=== PATIENT | female | born 1950 | race Caucasian/White ===

== ENCOUNTER 2018-05-21 14:56 | Inpatient (IN) ==
[2018-05-21] MEDS ORDERED: Vancomycin Consult Pharmacy OTHER PRN (17:01)
[2018-05-21] MEDS ORDERED: Dextrose 50% in Water 50 ML Vial IV.PUSH PRN (17:01)
[2018-05-21] MEDS: Insulin NovoLOG Aspart Correctional Sugar Inj SQ SCH (20:26)
[2018-05-21] MEDS: Sod Chloride 0.9% Inj 1,000 ML IV.CONT SCH (20:28)
[2018-05-21] MEDS: Enoxaparin Inj 30 MG/0.3 ML Syringe SQ SCH (20:34)
[2018-05-21] MEDS: Senna/Docusate Sodium 8.6/50 MG Tablet PO SCH (20:34)
[2018-05-21] MEDS: Acetaminophen 325 MG Tablet PO PRN (21:14)
[2018-05-21] MEDS: Piperacil/Tazo 4.5 GM Premix 4.5 GM/100 ML BAG IV.SIG SCH (22:07)
[2018-05-22] MEDS: Piperacil/Tazo 4.5 GM Premix 4.5 GM/100 ML BAG IV.SIG SCH ×3 (03:58→21:37)
[2018-05-22] MEDS: Sod Chloride 0.9% Inj 1,000 ML IV.CONT SCH (04:56)
[2018-05-22 06:00] LABS: Baso % (Auto) 0.1 % (0.0-2.0); Eos # (Auto) 0.2 th/mm3 (0.0-0.4); Eos % (Auto) 3.5 % (0.0-4.0); Hematocrit 32.1 % (35.0-46.0); Hemoglobin 10.8 gm/dL (11.6-15.3); Lymph # (Auto) 0.6 th/mm3 (1.0-4.8); Lymph % (Auto) 8.6 % (9.0-44.0); Mean Corpuscular HGB Conc 33.7 % (32.0-36.0); Mean Corpuscular Hemoglobin 31.5 pg (27.0-34.0); Mean Corpuscular Volume 93.7 fL (80.0-100.0); Mean Platelet Volume 7.3 fL (7.0-11.0); Mono # (Auto) 0.5 th/mm3 (0.0-0.9); Mono % (Auto) 7.6 % (0.0-8.0); Neut # (Auto) 5.4 th/mm3 (1.8-7.7); Neut % (Auto) 80.2 % (16.0-70.0); Platelet Count 206 th/mm3 (150-450); Red Blood Count 3.43 mil/mm3 (4.00-5.30); Red Cell Distribution Width 14.9 % (11.6-17.2); White Blood Count 6.7 th/mm3 (4.0-11.0)
[2018-05-22 06:07] LABS: Chloride 109 meq/L (98-107); Sodium 145 meq/L (136-145)
[2018-05-22 06:14] LABS: Calcium 7.6 mg/dL (8.5-10.1)
[2018-05-22 06:15] LABS: Albumin 2.7 g/dL (3.4-5.0); Anion Gap 9 meq/L (5-15); Blood Urea Nitrogen 8 mg/dL (7-18); Carbon Dioxide 27.2 meq/L (21.0-32.0); Glucose,Random 127 mg/dL (74-106)
[2018-05-22 06:17] LABS: Alanine Aminotransferase 27 U/L (10-53); Aspartate Aminotransferase 25 U/L (15-37)
[2018-05-22 06:18] LABS: Glomerular Filtration Rate Greater Than 89 mL/min (>89); Total Protein 6.3 g/dL (6.4-8.2)
[2018-05-22 06:20] LABS: Alkaline Phosphatase 82 U/L (45-117)
[2018-05-22] MEDS: Insulin NovoLOG Aspart Correctional Sugar Inj SQ SCH ×4 (06:33→18:02)
[2018-05-22] MEDS: Senna/Docusate Sodium 8.6/50 MG Tablet PO SCH ×2 (08:10→21:37)
[2018-05-22] MEDS ORDERED: Vancomycin Inj 2,000 MG in Sodium Chlor 0.9% Inj 500 ML IV.SIG SCH (09:00)
[2018-05-22] MEDS: Potassium Chloride Inj 30 MEQ in Sod Chloride 0.9% Inj 1,000 ML IV.CONT SCH ×2 (09:17→21:37)
[2018-05-22] MEDS: Acetaminophen 325 MG Tablet PO PRN (09:27)
--- NOTE | 2018-05-22 12:06 | P.HPIM ---
History of Present Illness Primary Care Physician: UNKNOWN Chief Complaint: Urine abnormalities History of Present Illness: The patient is a 67-year-old female with a past medical history of lupus, kidney stones and UTI who is presenting to the hospital with changes in her urine. She says on Tuesday she noticed that her urine became dark in color she started drinking a lot of water in response to that. She says she dribble some urine on the toilet seat and noticed that the urine was the color of rest. She was unsure if there was any sediment in the urine. The patient then said that she went into full body shakes not too long after that. She said she felt cold. She then had an episode of urinary incontinence. She thinks that she may have passed a stone. She was also noted to have balance issues. Her family states that she was mumbling incoherently. The patient does endorse some confusion over the past few days. She denies any fevers. She states that she noted a rash on her upper right chest wall today. She said it was warm to the touch. She also endorse some back pain. She says earlier in the bathroom her legs and arms look like they were more red in color. Inpatient Certification: I certify that the inpatient services were ordered in accordance with Medicare regulations governing the order. This includes certification that hospital inpatient services are reasonable and necessary and in the case of services not specified as inpatient-only under 42 CFR 419.22(n), that they are appropriately provided as inpatient services in accordance to with the 2-midnight benchmark under 43 CFR 412.3(e) Estimated Total Length of Stay (Days): 2 Plans for Post Hospital Care: Not yet determined Review of Systems All other systems reviewed negative except as stated in [facility] - History History Provided By: Patient - Medical History Medical History: Medical History (Last Updated 05/22/18 @ 12:05 by Nelson Romeo DO) CAD (coronary artery disease) COPD (chronic obstructive pulmonary disease) Crohns disease Diabetes Kidney stones Systemic lupus erythematosus UTI (urinary tract infection) Breast cancer Fibromyalgia HTN (hypertension) Thyroid disease - Surgical History Surgical History: Surgical History (Last Updated 05/22/18 @ 12:05 by Nelson Romeo DO) H/O bilateral mastectomy History of bilateral knee replacement History of tonsillectomy and adenoidectomy Hx of bilateral mastectomy Hx of tubal ligation - Family History Family History: Family History (Last Updated 05/22/18 @ 12:05 by Nelson Romeo DO) Other Cancer - Tobacco History Second Hand Smoke Exposure: Yes Tobacco Use In Past 30 Days: No (quit in 1997.) Smoking Status: Former smoker - Alcohol History How Often Do You Have a Drink Containing Alcohol: Never - Substance Use History Substance History: No History of Abuse - Travel History Recent Travel in the [place] Within the Last 8 Weeks: No Recent Travel Out of the Country Within the Last 8 Weeks: No - Immunization History Tetanus Immunization: Unable to Assess Hx Influenza Vaccine This Season: Yes Medications and Allergies Active Medications: Active Medications Acetaminophen (Tylenol) 650 mg PO Q4H PRN PRN Reason: Temp > 100.4, pain 1-2 Last Admin: 05/22/18 09:27 Dose: 650 mg Amitriptyline HCl (Elavil) 75 mg PO DAILY [facility] Atorvastatin Calcium (Lipitor) 40 mg PO DAILY [facility] Dextrose (D50w Vial) 50 ml IV.PUSH UNSCH PRN PRN Reason: PER HYPOGLYCEMIA PROTOCOL Enoxaparin Sodium (Lovenox Inj) 30 mg SQ Q24H [facility] Last Admin: 05/21/18 20:34 Dose: 30 mg Glucagon (Glucagon Inj) 1 mg OTHER PRN PRN PRN Reason: for Hypoglycemia Protocol Hydroxychloroquine Sulfate (Plaquenil) 200 mg PO BID [facility] Piperacillin/Tazobactam/Dextrose (Zosyn 4.5 Gm Premix) 4.5 gm in 100 mls @ 200 mls/hr IV.SIG Q6H [facility] Last Infusion: 05/22/18 04:30 Dose: Infused Vancomycin HCl 2,000 mg/ (Sodium Chloride) 520 mls @ 250 mls/hr IV.SIG Q24H [facility] Last Admin: 05/22/18 09:19 Dose: 250 mls/hr Potassium Chloride 30 meq/ (Sodium Chloride) 1,015 mls @ 84 mls/hr IV.CONT .Q12H5M [facility] Last Admin: 05/22/18 09:17 Dose: 84 mls/hr Insulin Aspart (Novolog Insulin Correctional Sugar Inj) 0 unit SQ Q6HR LISA; Protocol Last Admin: 05/22/18 06:33 Dose: Not Given Levothyroxine Sodium (Synthroid) 100 mcg PO DAILY [facility] Loratadine (Claritin) 10 mg PO DAILY [facility] Metoprolol Tartrate (Lopressor) 25 mg PO DAILY [facility] Miscellaneous Information ([facility] Ordered Lab Info) 0 each OTHER ONCE ONE Stop: 05/25/18 08:46 Ondansetron HCl (Zofran Inj) 4 mg IV.PUSH Q6H PRN PRN Reason: NAUSEA OR VOMITING Oxycodone HCl (Roxicodone) 5 mg PO Q4H PRN PRN Reason: pain 3-10 Pharmacy Profile Note (Vancomycin Consult Pharmacy) 1 each OTHER UNSCH PRN PRN Reason: Pharmacy to dose Pregabalin (Lyrica) 100 mg PO TID [facility] Senna/Docusate Sodium (Michelle-Colace) 1 tab PO BID [facility] Last Admin: 05/22/18 08:10 Dose: Not Given Sodium Chloride (Ns Flush) 2 ml IV.FLUSH BID [facility] Last Admin: 05/22/18 08:10 Dose: Not Given Sodium Chloride (Ns Flush) 2 ml IV.FLUSH PRN PRN PRN Reason: FLUSH AFTER USING IV ACCESS Allergies Allergy/AdvReac Type Severity Reaction Status Date / Time aspirin Allergy Severe SWELLING Verified 05/21/18 15:09 iodine Allergy Severe PASSED OUT Verified 05/21/18 15:09 potassium iodide Allergy Severe PASSED OUT Verified 05/21/18 15:09 povidone-iodine Allergy Severe PASSED OUT Verified 05/21/18 15:09 sodium iodide Allergy Severe PASSED OUT Verified 05/21/18 15:09 sodium iodide Allergy Severe PASSED OUT Verified 05/21/18 15:09 Sulfa (Sulfonamide Allergy Unknown Rash Verified 05/21/18 15:09 Antibiotics) CITRUS Allergy Severe SWELLING Uncoded 05/21/18 15:09 Home Medications Medication Instructions Recorded Confirmed Type amitriptyline 75 mg PO DAILY 05/21/18 05/22/18 History atorvastatin 40 mg PO DAILY 05/21/18 05/22/18 History hydrochlorothiazide 25 mg PO DAILY 05/21/18 05/22/18 History hydroxychloroquine 200 mg PO BID 05/21/18 05/22/18 History levothyroxine 100 mcg PO DAILY 05/21/18 05/22/18 History loratadine 10 mg PO DAILY 05/21/18 05/22/18 History metformin 500 mg PO BID 05/21/18 05/22/18 History metoprolol tartrate 25 mg PO DAILY 05/21/18 05/22/18 History pregabalin [Lyrica] 100 mg PO TID 05/21/18 05/22/18 History Exam Vital signs: Vital Signs 05/21/18 20:00 05/21/18 21:00 05/22/18 00:00 Temperature 100.6 F H 98.1 F Pulse Rate 86 89 75 Respiratory Rate 18 18 Blood Pressure 131/59 L 117/59 L Pulse Oximetry 99 98 05/22/18 00:28 05/22/18 04:00 05/22/18 08:00 Temperature 97.8 F 98.9 F Pulse Rate 76 83 Respiratory Rate 18 18 Blood Pressure 155/65 H 132/62 Pulse Oximetry 98 97 97 05/22/18 08:08 Temperature Pulse Rate Respiratory Rate Blood Pressure Pulse Oximetry 98 Intake & Output 05/21/18 05/22/18 05/22/18 18:59 06:59 18:59 Intake Total 380 / 380 1000 / 1000 Output Total 450 / 450 Balance -70 / -70 1000 / 1000 Weight 115 kg Intake: IV 200 / 200 1000 / 1000 NS Inj 1,000 ML @ 100 mls/hr IV 1000 / 1000 .CONT .Q10H [facility] Rx#:[id number] Zosyn 4.5 GM Premix 4.5 gm In 200 / 200 100 ml @ 200 mls/hr IV.SIG Q6H [facility] Rx#:[id number] Oral 180 / 180 Output: Urine 450 / 450 Other: Date of Last Bowel Movement 05/20/18 Weight On Admission 114.4 kg Narrative: GENERAL: No distress. SKIN: Focused skin assessment warm/dry. Mild erythema on right upper chest wall. HEAD: Atraumatic. Normocephalic. EYES: Pupils equal and round. No scleral icterus. No injection or drainage. ENT: No nasal bleeding or discharge. Mucous membranes pink and moist. NECK: Trachea midline. No JVD. CARDIOVASCULAR: Regular rate and rhythm. No murmur appreciated. RESPIRATORY: No accessory muscle use. Clear to auscultation. Breath sounds equal bilaterally. GASTROINTESTINAL: Abdomen soft, non-tender, nondistended. Hepatic and splenic margins not palpable. Minimal bilateral CVA tenderness noted, worse on the right. MUSCULOSKELETAL: No obvious deformities. No clubbing. No cyanosis. No edema. NEUROLOGICAL: Awake and alert. No obvious cranial nerve deficits. Motor grossly within normal limits. Normal speech. PSYCHIATRIC: Appropriate mood and affect; insight and judgment normal. Results - Labs CBC & Chem 7: 05/22/18 05:28 05/22/18 05:28 Labs: Short CBC 05/22/18 Range/Units 05:28 WBC 6.7 (4.0-11.0) th/mm3 Hgb 10.8 L (11.6-15.3) gm/dL Hct 32.1 L (35.0-46.0) % Plt Count 206 (150-450) th/mm3 BMP 05/22/18 05:28 Sodium 145 Potassium 3.0 L Chloride 109 H Carbon Dioxide 27.2 BUN 8 Creatinine 0.55 Calcium 7.6 L D Liver Function 05/22/18 Range/Units 05:28 Total Bilirubin 0.7 (0.2-1.0) mg/dL AST 25 (15-37) U/L ALT 27 (10-53) U/L Alkaline Phosphatase 82 (45-117) U/L Albumin 2.7 L D (3.4-5.0) g/dL Caprini VTE Risk Assessment Caprini VTE Risk Assessment: Moderate/High Risk (score >= 2) Caprini Risk Assessment Model: Point Value = 1 Point Value = 2 Point Value = 3 Point Value = 5 Age 41-60 Minor surgery BMI > 25 kg/m2 Swollen legs Varicose veins or History of unexplained or recurrent spontaneous Oral contraceptives or hormone replacement Sepsis (< 1 month) Serious lung disease, including pneumonia (< 1 month) Abnormal pulmonary function Acute myocardial infarction Congestive heart failure (< 1 month) History of inflammatory bowel disease Medical patient at bed rest Age 61-74 Arthroscopic surgery Major open surgery (> 45 min) Laparoscopic surgery (> 45 min) Malignancy Confined to bed (> 72 hours) Immobilizing plaster cast Central venous access Age >= 75 History of VTE Family history of VTE Factor V Leiden Prothrombin [id number] Lupus anticoagulant Anticardiolipin antibodies Elevated serum homocysteine Heparin-induced thrombocytopenia Other congenital or acquired thrombophilia Stroke (< 1 month) Elective arthroplasty Hip, pelvis, or leg fracture Acute spinal cord injury (< 1 month) Prophylaxis Regimen: Total Risk Factor Score Risk Level Prophylaxis Regimen 0-1 Low Early ambulation 2 Moderate Order ONE of the following: *Sequential Compression Device (SCD) *Heparin 5000 units SQ BID 3-4 Higher Order ONE of the following medications: *Heparin 5000 units SQ TID *Enoxaparin/Lovenox 40 mg SQ daily (WT < 150 kg, CrCl > 30 mL/min) *Enoxaparin/Lovenox 30 mg SQ daily (WT < 150 kg, CrCl > 10-29 mL/min) *Enoxaparin/Lovenox 30 mg SQ BID (WT < 150 kg, CrCl > 30 mL/min) AND/OR *Sequential Compression Device (SCD) 5 or more Highest Order ONE of the following medications: *Heparin 5000 units SQ TID (Preferred with Epidurals) *Enoxaparin/Lovenox 40 mg SQ daily (WT < 150 kg, CrCl > 30 mL/min) *Enoxaparin/Lovenox 30 mg SQ daily (WT < 150 kg, CrCl > 10-29 mL/min) *Enoxaparin/Lovenox 30 mg SQ BID (WT < 150 kg, CrCl > 30 mL/min) AND *Sequential Compression Device (SCD) Assessment and Plan - Plan UTI/sepsis Patient with tachycardia and leukocytosis. Noted to have a urinary tract infection. Lactic acid level was elevated. -Discontinue vancomycin. Continue IV Zosyn. -Follow urine and blood cultures. -Continue IV fluids. Hypokalemia Likely s/t decreased PO intake and diuretics. -replete with IVFs and monitor. -telemetry. -hold HCTZ. Diabetes Well controlled at this time. -Continue insulin sliding scale. -Add long acting insulin as needed. Anemia Possibly dilutional. MCV normal. -follow CBC. PPx: Lovenox H&P: Quality - VTE Deep Vein Thrombosis/Pulmonary Embolism Present on Admission: No
[2018-05-22] MEDS: Hydroxychloroquine 200 MG Tablet PO SCH ×2 (12:24→21:38)
[2018-05-22] MEDS: Levothyroxine 100 MCG Tablet PO SCH (12:24)
[2018-05-22] MEDS: Metoprolol Tartrate 25 MG Tablet PO SCH (12:25)
[2018-05-22] MEDS: Amitriptyline 25 MG Tablet PO SCH (12:26)
[2018-05-22] MEDS: Enoxaparin Inj 30 MG/0.3 ML Syringe SQ SCH (21:37)
[2018-05-23] MEDS: Piperacil/Tazo 4.5 GM Premix 4.5 GM/100 ML BAG IV.SIG SCH ×2 (02:56→06:30)
[2018-05-23] MEDS: Insulin NovoLOG Aspart Correctional Sugar Inj SQ SCH ×4 (02:59→17:35)
[2018-05-23 06:46] LABS: Baso % (Auto) 0.3 % (0.0-2.0); Eos # (Auto) 0.3 th/mm3 (0.0-0.4); Hematocrit 33.5 % (35.0-46.0); Hemoglobin 11.6 gm/dL (11.6-15.3); Lymph # (Auto) 0.7 th/mm3 (1.0-4.8); Lymph % (Auto) 10.6 % (9.0-44.0); Mean Corpuscular HGB Conc 34.6 % (32.0-36.0); Mean Corpuscular Hemoglobin 32.4 pg (27.0-34.0); Mean Corpuscular Volume 93.5 fL (80.0-100.0); Mono # (Auto) 0.6 th/mm3 (0.0-0.9); Mono % (Auto) 9.1 % (0.0-8.0); Neut # (Auto) 4.9 th/mm3 (1.8-7.7); Platelet Count 238 th/mm3 (150-450); Red Blood Count 3.58 mil/mm3 (4.00-5.30); Red Cell Distribution Width 14.5 % (11.6-17.2); White Blood Count 6.5 th/mm3 (4.0-11.0)
[2018-05-23 06:52] LABS: Chloride 106 meq/L (98-107); Potassium 3.1 meq/L (3.5-5.1); Sodium 142 meq/L (136-145)
[2018-05-23 06:55] LABS: Anion Gap 9 meq/L (5-15); Blood Urea Nitrogen 5 mg/dL (7-18); Calcium 7.8 mg/dL (8.5-10.1); Glucose,Random 127 mg/dL (74-106); Magnesium 1.9 mg/dL (1.5-2.5)
[2018-05-23 06:59] LABS: Glomerular Filtration Rate Greater Than 89 mL/min (>89)
[2018-05-23] MEDS: Senna/Docusate Sodium 8.6/50 MG Tablet PO SCH ×2 (08:26→21:43)
[2018-05-23] MEDS: Hydroxychloroquine 200 MG Tablet PO SCH ×2 (08:26→21:43)
[2018-05-23] MEDS: Metoprolol Tartrate 25 MG Tablet PO SCH (08:27)
[2018-05-23] MEDS: Levothyroxine 100 MCG Tablet PO SCH (08:27)
[2018-05-23] MEDS: Amitriptyline 25 MG Tablet PO SCH (08:28)
[2018-05-23] MEDS ORDERED: Loratadine 10 MG Tablet PO SCH (09:00)
--- NOTE | 2018-05-23 12:06 | P.PNIM ---
Physical Exam Vital signs: Last Vital Signs Temp 97.2 F L 05/23/18 11:51 Pulse 74 05/23/18 11:51 Resp 20 05/23/18 11:51 BP 143/67 H 05/23/18 11:51 Pulse Ox 95 05/23/18 11:51 Intake & Output 05/21/18 05/22/18 05/23/18 05/24/18 06:59 06:59 06:59 06:59 Intake Total 380 / 380 3635 / 3635 Output Total 450 / 450 1500 / 1500 Balance -70 / -70 2135 / 2135 Weight 115 kg 115.6 kg Narrative: GENERAL: No distress. SKIN: Focused skin assessment warm/dry. Mild erythema on right upper chest wall. HEENT: not pale,anicteric. NECK:No JVD. CARDIOVASCULAR: Regular rate and rhythm. No murmur appreciated. RESPIRATORY: No accessory muscle use. Clear to auscultation. Breath sounds equal bilaterally. GASTROINTESTINAL: Abdomen nondistended,soft, non-tender,no organomegaly. MUSCULOSKELETAL: No obvious deformities. No clubbing. No cyanosis. No edema. NEUROLOGICAL: Awake and alert, oriented x4. Normal speech.No obvious cranial nerve deficits. Motor grossly within normal limits. PSYCHIATRIC: Appropriate mood and affect; insight and judgment normal. Results Labs CBC & Chem 7: 05/23/18 06:18 05/23/18 06:18 Assessment and Plan Plan 67 yo F who presented with UTI/sepsis UTI/sepsis Patient with tachycardia and leukocytosis on admission,noted to have a urinary tract infection. Lactic acid level was elevated. clinically improving. blood cultures negative. urine culture growing carbajal sensitive E.Coli, will switch to PO Cipro. Hypokalemia Likely s/t decreased PO intake and diuretics. -replete with IVFs and monitor. -telemetry. -hold HCTZ. Diabetes Well controlled at this time. -Continue insulin sliding scale. -Add long acting insulin as needed. Anemia Possibly dilutional. MCV normal. -follow CBC. PPx: Lovenox Progress Note: Quality VTE Deep Vein Thrombosis/Pulmonary Embolism Present on Admission: No
[2018-05-23] MEDS: Potassium Chloride Inj 30 MEQ in Sod Chloride 0.9% Inj 1,000 ML IV.CONT SCH (12:38)
[2018-05-23] MEDS ORDERED: Ciprofloxacin 500 MG Tablet PO SCH (21:00)
[2018-05-23] MEDS ORDERED: Amitriptyline 25 MG Tablet PO SCH (21:00)
[2018-05-23] MEDS: Enoxaparin Inj 30 MG/0.3 ML Syringe SQ SCH (21:44)
[2018-05-24] MEDS: Insulin NovoLOG Aspart Correctional Sugar Inj SQ SCH ×2 (00:39→06:31)
[2018-05-24] MEDS: Potassium Chloride Inj 30 MEQ in Sod Chloride 0.9% Inj 1,000 ML IV.CONT SCH (00:40)
[2018-05-24] MEDS: Senna/Docusate Sodium 8.6/50 MG Tablet PO SCH (06:51)
[2018-05-24 09:45] VITALS: BP 132/61; PULSE 82; RESP 18; TEMP 97.6; O2SAT 95
[2018-05-24] MEDS: Acetaminophen 325 MG Tablet PO PRN (10:51)
--- NOTE | 2018-05-24 17:11 | P.DS ---
DS: Providers Date of admission: 05/21/18 19:07 Primary care physician: UNKNOWN Consults: 05/22/18 10:43 HUB Only Consult Order Routine Consulting Provider: Klaus Enrique Brief History from admission: The patient is a 67-year-old female with a past medical history of lupus, kidney stones and UTI who is presenting to the hospital with changes in her urine. She says on Tuesday she noticed that her urine became dark in color she started drinking a lot of water in response to that. She says she dribble some urine on the toilet seat and noticed that the urine was the color of rest. She was unsure if there was any sediment in the urine. The patient then said that she went into full body shakes not too long after that. She said she felt cold. She then had an episode of urinary incontinence. She thinks that she may have passed a stone. She was also noted to have balance issues. Her family states that she was mumbling incoherently. The patient does endorse some confusion over the past few days. She denies any fevers. She states that she noted a rash on her upper right chest wall today. She said it was warm to the touch. She also endorse some back pain. She says earlier in the bathroom her legs and arms look like they were more red in color. DS: Summary ISSUES ADDRESSED DURING THIS HOSPITALIZATION: 1.UTI/sepsis Patient with tachycardia and leukocytosis on admission,noted to have a urinary tract infection. Lactic acid level was elevated. She was placed on IV Cipro on admission.urine culture grew carbajal sensitive E.Coli.Blood cultures remained negative. Patient was switched to PO Cipro on discharge. 2.Hypokalemia: Likely due to decreased PO intake and diuretics. Potassium was repleted as needed. She was discharged with a 3 day prescription of potassium. She will need repeat level on follow up. Patient advised to follow up with her PCP within 1 week for re-evaluation. Time Spent with Patient Total time spent providing and/or coordinating discharge services: Quality: VTE Deep Vein Thrombosis/Pulmonary Embolism Present on Admission: No Results Labs on day of discharge: Labs from last 24 hours 05/24/18 05/24/18 05/23/18 06:30 00:37 17:00 POC Glucose 134 H 146 H 117 H 05/23/18 11:35 POC Glucose 131 H Discharge Plan Discharge Disposition Patient Disposition: 01 Discharge Home Discharge Order Discharge Orders: Discharge Order (Routine); Ordered 05/24/18 Ordered By: Benjamin Hogan Discharge Details Anticipated Discharge Date: 05/24/18 Physicians Team Primary Care Provider: UNKNOWN, Attending Provider: Benjamin Hogan Other Providers: Klaus Enrique Rxs /Orders / Referrals /Forms Prescriptions: New ciprofloxacin HCl 500 mg Tablet 500 mg PO Q12HR Qty: 10 RF: 0 potassium chloride 20 mEq Tablet,Er Particles/Crystals 20 meq PO DAILY 3 Days Qty: 3 RF: 0 Continue atorvastatin 40 mg Tablet 40 mg PO DAILY RF: 0 metformin 500 mg Tablet 500 mg PO BID RF: 0 amitriptyline 25 mg Tablet 75 mg PO DAILY RF: 0 hydrochlorothiazide 25 mg Tablet 25 mg PO DAILY RF: 0 hydroxychloroquine 200 mg Tablet 200 mg PO BID RF: 0 loratadine 10 mg Tablet 10 mg PO DAILY RF: 0 metoprolol tartrate 25 mg Tablet 25 mg PO DAILY RF: 0 pregabalin [Lyrica] 100 mg Capsule 100 mg PO TID RF: 0 levothyroxine 100 mcg Capsule 100 mcg PO DAILY RF: 0 Referrals: UNKNOWN, [Primary Care Provider] - See Instructions Discharge Instructions Patient Printed Instructions: Urinary Tract Infection in Women (DC) Additional Instructions: You presented to the hospital due to change in color of urine and chills. You were found to have a urine tract infection, urine culture grew E.coli. You were initially on IV antibiotics and improved and have been transitioned to antibiotic pills, please complete dose as prescribed. Your potassium level was found to be low and has been replaced. You have been given potassium pills, take as prescribed. Your doctor should repeat a potassium level on follow up. Status ED Status: Admitted Patient Discharge Information Discharge Date/Time: 05/24/18 11:30
[2018-05-25] MEDS ORDERED: Pharmacy Ordered Lab Info OTHER ONE (08:45)
== END 2018-05-24 11:30 | disposition home or self-care (01) ==
LOC: PHEDDLT 14:56 → PHEDA 19:07 → PH3 19:28
PROVIDERS: ADMIT Hospitalist; ATTEND Hospitalist